=== PATIENT | female | born 2000 | race Hispanic/Latino ===

== ENCOUNTER 2023-11-09 09:16 | Emergency (ER) | payer OTHER ==
[~2023-11-09] VITALS: Ht 162.6 cm; Wt 81.6 kg
[2023-11-09 09:50] LABS: BASOPHILS # (AUTO) 0.01 K/uL (0.00-0.20); BASOPHILS % (AUTO) 0.2 % (0.0-5.0); EOSINOPHILS # (AUTO) 0.01 K/uL (0.00-0.70); EOSINOPHILS % (AUTO) 0.2 % (0.0-8.0); HEMATOCRIT 35.7 % (36-48); IMMATURE GRANULOCYTE ABSOLUTE 0.03 K/uL (0-1); LYMPHOCYTES # (AUTO) 1.7 K/uL (1.0-4.8); LYMPHOCYTES % (AUTO) 37.9 % (21.0-51.0); MEAN CORPUSCULAR HEMOGLOBIN 19.6 pg (27.0-33.0); MEAN CORPUSCULAR HGB CONC 28.9 g/dL (32.0-36.0); MONOCYTES # (AUTO) 0.5 K/uL (0.1-1.0); MONOCYTES % (AUTO) 11.8 % (3.0-13.0); NEUTROPHILS # (AUTO) 2.2 K/uL (1.8-7.7); NEUTROPHILS % (AUTO) 49.2 % (40.0-77.0); PLATELET COUNT (AUTO) 415 K/uL (130-400); RED BLOOD CELL COUNT(AUTO) 5.25 MIL/uL (4.00-5.50); RED CELL DISTRIBUTION WIDTH 17.6 % (11.0-15.5); WHITE BLOOD COUNT (AUTO) 4.6 K/uL (4.8-10.8)
[2023-11-09 10:07] LABS: ALBUMIN 3.9 g/dL (3.5-5.0); BILIRUBIN,TOTAL 0.3 mg/dL (0.2-1.0); CREATININE 0.7 mg/dL (0.5-1.5); POTASSIUM 3.7 mmol/L (3.5-5.1); TOTAL PROTEIN, SERUM 8.9 g/dL (6.0-8.3)
[2023-11-09 10:16] LABS: APPEARANCE,URINE CLOUDY (CLEAR); BILIRUBIN,URINE MODERATE mg/dL (NEGATIVE); GLUCOSE, URINE (UA) NEGATIVE (NEGATIVE); KETONES,URINE 15 mg/dL (NEGATIVE); LEUKOCYTE ESTERASE ,URINE TRACE Leu/uL (NEGATIVE); NITRATE,URINE POSITIVE (NEGATIVE); OCCULT BLOOD,URINE LARGE (NEGATIVE); PH,URINE 6.5 (5.0-8.0); PROTEIN,URINE 100 mg/dL (NEGATIVE)
[2023-11-09 10:18] LABS: HCG,QUALITATIVE URINE NEGATIVE (NEGATIVE)
[2023-11-09] MEDS ORDERED: ONDANSETRON ODT 4MG TAB SL ONE (11:00)
[2023-11-09 11:02] LABS: ADD UA MICROSCOPIC YES; COLOR,URINE RED (YELLOW)
[2023-11-09 11:13] LABS: RBC,URINE TNTC /HPF (0-1)
[2023-11-09 11:14] LABS: BACTERIA,URINE Rare /HPF (None Seen); SQUAMOUS EPITHELIAL CELL,UR Rare /HPF (0-2)
[2023-11-09] MEDS ORDERED: CEFTRIAXONE 1G VIAL IM ONE (11:30)
[2023-11-09] MEDS ORDERED: LIDOCAINE HCL 1% 20 ML VIAL ONE (11:33)
[2023-11-09] MEDS ORDERED: ONDA4TAB10 PO (12:22)
[2023-11-09] MEDS ORDERED: MACR100 PO (12:22)
[2023-11-09 13:09] VITALS: BP 128/89; PULSE 72; RESP 16; O2SAT 100
== END 2023-11-09 13:13 | disposition home or self-care (01) ==
LOC: EDH 09:16
DX: N39.0 Urinary tract infection, site not specified (principal)
CPT/HCPCS: 99283; 80053; 85025; 87088; 81001; 81025; 36415; 96372; J0696